=== PATIENT | female | born 1975 | race Caucasian/White ===

== ENCOUNTER 2017-06-17 17:59 | Emergency (ER) | payer BC ==
[2017-06-17 18:37] VITALS: BP 129/82
--- NOTE | 2017-06-17 19:50 | UC ---
Respiratory Complaint HPI - HPI Summary HPI Summary: Pt presents with c/o generalized malaise, fever, chills, cough, sore throat, X 2 days. Pt has stage IV breast cancer is being treated with femara and Ibance X 2 years - History of Current Complaint Chief Complaint: UCGeneralIllness Stated Complaint: SINUS COMPLAINTS Time Seen by Provider: 06/17/17 19:42 Hx Obtained From: Patient Hx Last Menstrual Period: >8 YRS ?: No Onset/Duration: Gradual Onset, Lasting Days, Still Present Timing: Constant Severity Initially: Mild Severity Currently: Mild Pain Intensity: 3 Character: Cough: Nonproductive Aggravating Factors: Deep Breaths, Recumbent Position Alleviating Factors: Nothing Associated Signs And Symptoms: Positive: Fever, Chills, URI, Nasal Congestion - Risk Factors Pulmonary Embolism Risk Factors: Malignancy - Allergies/Home Medications Allergies/Adverse Reactions: Allergies Allergy/AdvReac Type Severity Reaction Status Date / Time environmental allergy Allergy Difficulty Uncoded 07/13/12 16:48 Breathing Home Medications: Home Medications Acetaminophen [Mapap] 500 mg PO Q12H 06/17/17 [History Confirmed 06/17/17] Letrozole (NF) [Femara (NF)] 2.5 mg PO DAILY 06/17/17 [History Confirmed ] Palbociclib [Ibrance] 125 mg PO DAILY 06/17/17 [History Confirmed 06/17/17] Pantoprazole Sodium [Protonix] 40 mg PO DAILY 06/17/17 [History Confirmed ] Pseudoephedrine HCl [Sudafed 12 Hour] 240 mg PO DAILY 06/17/17 [History Confirmed 06/17/17] PMH/Surg Hx/FS Hx/Imm Hx Previously Healthy: No Cancer History: Breast Cancer - Surgical History Surgical History: Yes Surgery Procedure, Year, and Place: PORT PLACEMENT. tubal ligation. ablation, uterine. ovarian cysts. colposcopy. BIOPSY LEFT BREAST AND LIVER BIOPSY - Family History Known Family History: Positive: Cardiac Disease - Social History Occupation: Employed Full-time Lives: With Family Alcohol Use: Occasionally Substance Use Type: None Smoking Status (MU): Never Smoked Tobacco Review of Systems Constitutional: Fever, Chills, Fatigue Skin: Negative Eyes: Negative ENT: Sore Throat Respiratory: Cough Cardiovascular: Negative Gastrointestinal: Negative Genitourinary: Negative Motor: Negative Neurovascular: Negative Musculoskeletal: Myalgia Neurological: Negative Psychological: Negative Is Patient Immunocompromised?: No All Other Systems Reviewed And Are Negative: Yes Physical Exam Triage Information Reviewed: Yes Appearance: Well-Appearing Vital Signs: Initial Vital Signs Temp 100.4 F 06/17/17 18:26 Pulse 91 06/17/17 18:26 Resp 18 06/17/17 18:26 BP 129/82 06/17/17 18:26 Pulse Ox 100 06/17/17 18:26 Vital Signs Reviewed: Yes Eye Exam: Normal ENT Exam: Other ENT: Positive: Nasal congestion Neck exam: Normal Respiratory Exam: Normal Cardiovascular Exam: Normal Musculoskeletal Exam: Normal Neurological Exam: Normal Psychological Exam: Normal Skin Exam: Normal UC Diagnostic Evaluation - Laboratory O2 Sat by Pulse Oximetry: 100 Respiratory Course/Dx - Course Course Of Treatment: Pt has STage IV breast cancer, mets to bone, high risk for infection. - Differential Dx/Diagnosis Differential Diagnosis/HQI/PQRI: Bronchitis, Influenza Provider Diagnoses: Bronchitis. Discharge - Sign-Out/Discharge Documenting (check all that apply): Discharge - Discharge Plan Condition: Stable Disposition: HOME Prescriptions: Azithromycin TAB* [Zithromax TAB (Z-FAIZAN) 250 mg #6 tabs] 2 tab PO .TODAY, THEN 1 DAILY #1 faizan Benzonatate CAP* [Tessalon 100 MG CAP*] 100 mg PO Q8H PRN #30 cap PRN Reason: Cough Patient Education Materials: Acute Bronchitis (ED) Referrals: No Primary Care Phys,NOPCP [Primary Care Provider] - If Needed Additional Instructions: Please follow up with your PCP and your Oncology provider as needed. - Billing Disposition and Condition Condition: STABLE Disposition: HOME
== END 2017-06-17 19:56 | disposition home or self-care (01) ==
LOC: UCCORT 17:59
DX: J40 Bronchitis, not specified as acute or chronic (principal)
CPT/HCPCS: 87502; 99202; G0463